=== PATIENT | male | born 2000 | race Caucasian/White ===

== ENCOUNTER 2018-03-19 15:30 | Emergency (ER) | payer OTHER ==
[~2018-03-19] VITALS: Ht 177.8 cm; Wt 82.1 kg
[~2018-03-19 15:30] MED LIST: ACID REFLEX MED; ADDERALL XR 2020 MG PO; ADDERALL30 MG PO; AMITRIPTYLINE H50 MG PO; CATAPRES0.1 MG; FOCALIN10 MG; MOTRIN600 MG PO; NEXIUM40 MG PO; NORCO 5/3251 TABLET PO; REMERON30 M2 PO; STOOL SOFTENER100 MG PO; SUDAFED 12-HOU120 MG PO; ZITHROMAX Z-PA250 MG PO; ZOLOFT25 MG PO
[2018-03-19] MEDS ORDERED: AUGMENTIN875 MG PO (17:11)
[2018-03-19] MEDS ORDERED: MOTRIN800 MG PO (17:28)
[2018-03-19 17:40] VITALS: BP 108/68
== END 2018-03-19 17:41 | disposition home or self-care (01) ==
LOC: EME 15:30 → RME 15:30
DX: S62.327A Displaced fracture of shaft of fifth metacarpal bone, left hand, initial encounter for closed fracture (principal); S61.411A Laceration without foreign body of right hand, initial encounter; S60.511A Abrasion of right hand, initial encounter; Y04.2XXA Assault by strike against or bumped into by another person, initial encounter; S01.451A Open bite of right cheek and temporomandibular area, initial encounter; Y04.1XXA Assault by human bite, initial encounter
CPT/HCPCS: 73130; 99281; 99284